=== PATIENT | male | born 1940 | race Caucasian/White ===

== ENCOUNTER 2022-02-27 22:59 | Inpatient (IN) | payer MEDICAID, MEDICARE ==
[~2022-02-27] VITALS: Ht 172.7 cm; Wt 90.0 kg
[2022-02-27 23:45] LABS: BASOPHILS # (AUTO) 0.1 X10'3 (0-0.2); BASOPHILS % (AUTO) 0.6 % (0-1); EOSINOPHILS # (AUTO) 0.1 X10'3 (0-0.9); EOSINOPHILS % (AUTO) 0.8 % (0-6); HEMATOCRIT 46.2 % (42.0-52.0); HEMOGLOBIN 15.8 g/dl (14.0-17.9); LYMPHOCYTES % (AUTO) 20.4 % (21-51); MEAN CORPUSCULAR HEMOGLOBIN 30.7 PG (27.0-31.0); MEAN CORPUSCULAR HGB CONC 34.2 g/dL (33.0-36.5); MEAN CORPUSCULAR VOLUME 89.7 FL (78-98); MEAN PLATELET VOLUME 8.7 FL (7.4-10.4); MONOCYTES % (AUTO) 9.9 % (2-12); NEUTROPHILS # (AUTO) 6.8 X10'3 (1.8-7.7); NEUTROPHILS % (AUTO) 68.3 % (42-75); PLATELET COUNT 176 X10'3 (140-440); RED BLOOD COUNT 5.16 X10'6 (4.70-6.10); RED CELL DISTRIBUTION WIDTH 13.4 % (11.5-14.5)
[2022-02-27 23:57] LABS: ALANINE AMINOTRANSFERASE 24 U/L (12-78); ALBUMIN 3.8 G/DL (3.4-5.0); ALBUMIN/GLOBULIN RATIO 1.2 (1.1-1.5); ALKALINE PHOSPHATASE 75 IU/L (46-116); ANION GAP 10 (8-16); ASPARTATE AMINO TRANSFERASE 16 U/L (10-37); BILIRUBIN,TOTAL 0.4 MG/DL (0.1-1.0); BLOOD UREA NITROGEN 25 MG/DL (7-18); BUN/CREATININE RATIO 17.1 (5.4-32.0); CALCIUM 8.6 MG/DL (8.5-10.1); CHLORIDE 104 MMOL/L (99-107); CREATININE 1.46 MG/DL (0.60-1.10); GLUCOSE 176 MG/DL (70-104); POTASSIUM 3.7 MMOL/L (3.5-5.1); SODIUM 141 MMOL/L (135-145); TOTAL CARBON DIOXIDE 27.3 MMOL/L (24-32); eGFR 46 ML/MIN
[2022-02-28] VITALS (14 sets, daily range): BP systolic 102–129; BP diastolic 47–68
[2022-02-28] MEDS ORDERED: heparin 10,000 units/1 ML INJ IV ONE ×2 (00:20→01:50)
[2022-02-28] MEDS ORDERED: heparin 10,000 units/1 ML INJ IV PRN ×3 (00:20→06:00)
[2022-02-28] MEDS ORDERED: HEPARIN SOD,PORK IN 0.45% NACL 250 ML IV SCH (00:20)
[2022-02-28] MEDS ORDERED: nitroGLYCERIN 1gm ointment UD TP ONE (00:20)
[2022-02-28] MEDS ORDERED: aspirin 81mg tab.chew PO ONE (00:20)
[2022-02-28] MEDS ORDERED: heparin 25,000 UNIT/250ml bag 250 ML IV SCH (00:40)
[2022-02-28] MEDS ORDERED: metoprolol tartrate 1mg/ml inj IV ONE (01:00)
[2022-02-28 01:41] LABS: APTT 28 SECONDS (22-32)
[2022-02-28] MEDS ORDERED: ondansetron/PF 4mg/2ml inj IV PRN (01:45)
[2022-02-28] MEDS ORDERED: PERFLUTREN PROTEIN-A MICROSPHR (Optison) 0.22 MG/ML 3ML VIAL IV PRN (01:45)
[2022-02-28] MEDS ORDERED: magnesium Cl slow-release 64mg tablet PO PRN (01:45)
[2022-02-28] MEDS ORDERED: magnesium 4gm in 100ml NS 100 ML IV PRN (01:45)
[2022-02-28] MEDS ORDERED: acetaminophen 325mg tablet PO PRN (01:45)
[2022-02-28] MEDS ORDERED: magnesium 2GM in 50ml NS 50 ML IV PRN (01:45)
[2022-02-28] MEDS ORDERED: potassium CL 10mEq/100ml bag 100 ML IV PRN (01:45)
[2022-02-28] MEDS ORDERED: POTASSIUM BICARB 20meq eff tab 20 MEQ TABLET.EFF PO PRN ×2 (01:45)
--- NOTE | 2022-02-28 01:46 | NUR ---
Second troponin 473. notified
[2022-02-28] MEDS ORDERED: heparin 25,000 UNIT/250ml bag 250 ML IV PRN ×2 (02:10→06:00)
[2022-02-28 02:43] LABS: MAGNESIUM 2.2 MG/DL (1.5-2.4); POTASSIUM 3.7 MMOL/L (3.5-5.1)
--- NOTE | 2022-02-28 02:53 | NUR ---
PAGER ID: [phone] MESSAGE: Fabien Perla in ER bed 16 Third troponin increased to 877
[2022-02-28] MEDS: morphine 2 MG/ML inj. syringe IV PRN ×2 (03:05→12:56)
[2022-02-28] MEDS ORDERED: ASPI-1264 PO (03:10)
[2022-02-28] MEDS ORDERED: SILD100T70 PO (03:10)
--- NOTE | 2022-02-28 07:20 | NUR ---
TELEPHONE REPORT TO FRANK KRUGER.
[2022-02-28] MEDS: K and/or MAG REPLACEMENT MC SCH ×2 (08:00→19:21)
[2022-02-28] MEDS ORDERED: fentaNYL/PF 50MCG/1 ML 2ML syringe ONE (08:31)
[2022-02-28] MEDS ORDERED: heparin 1,000unit/ml 10ml vial 10 ML ONE (08:31)
[2022-02-28] MEDS ORDERED: LIDOcaine 1% 30ml preserv. free vial ONE (08:31)
[2022-02-28] MEDS ORDERED: midazolam 1 mg/ML 2ml injection ONE ×2 (08:31→11:35)
[2022-02-28] MEDS ORDERED: iohexol 350MG/ML 100ml bottle IV ONE ×2 (08:32→10:57)
--- NOTE | 2022-02-28 08:57 | NUR ---
Patient in room PCU 3012. I have received report from FRANK MORATAYA and had the opportunity to ask questions and assume patient care.
--- NOTE | 2022-02-28 08:58 | NUR ---
0700 APTT 58, THERAPEUTIC, NO CHANGES, NEXT LAB ORDERED
[2022-02-28] MEDS ORDERED: aspirin 81mg, enteric-coated 1 TAB TABLET.DR PO ONE (10:30)
[2022-02-28] MEDS: atorvastatin 20mg tablet PO SCH (10:30)
[2022-02-28] MEDS ORDERED: ticagrelor 90mg tablet ONE (11:06)
[2022-02-28 11:29] LABS: HEMOGLOBIN A1C 6.5 % (4.5-6.2)
[2022-02-28 11:30] LABS: CHOL/HDL RATIO 3.9 (0.00-4.99); CHOLESTEROL 185 MG/DL (0-200); HDL CHOLESTEROL 48 MG/DL (35-60); LDL CHOLESTEROL 115 MG/DL (50-100); TRIGLYCERIDES 101 MG/DL (20-135)
[2022-02-28] MEDS ORDERED: heparin 1,000 UNITS/NS 500ml 500 ML ONE (11:35)
[2022-02-28 17:15] LABS: BASOPHILS # (AUTO) 0.1 X10'3 (0-0.2); BASOPHILS % (AUTO) 0.5 % (0-1); EOSINOPHILS # (AUTO) 0.2 X10'3 (0-0.9); EOSINOPHILS % (AUTO) 1.7 % (0-6); HEMATOCRIT 44.1 % (42.0-52.0); HEMOGLOBIN 14.7 g/dl (14.0-17.9); LYMPHOCYTES # (AUTO) 2.1 X10'3 (1.1-4.8); LYMPHOCYTES % (AUTO) 19.2 % (21-51); MEAN CORPUSCULAR HEMOGLOBIN 30.2 PG (27.0-31.0); MEAN CORPUSCULAR HGB CONC 33.3 g/dL (33.0-36.5); MEAN CORPUSCULAR VOLUME 90.5 FL (78-98); MEAN PLATELET VOLUME 8.4 FL (7.4-10.4); MONOCYTES # (AUTO) 1.4 X10'3 (0-0.9); MONOCYTES % (AUTO) 12.7 % (2-12); NEUTROPHILS # (AUTO) 7.3 X10'3 (1.8-7.7); NEUTROPHILS % (AUTO) 65.9 % (42-75); PLATELET COUNT 146 X10'3 (140-440); RED BLOOD COUNT 4.87 X10'6 (4.70-6.10); RED CELL DISTRIBUTION WIDTH 13.5 % (11.5-14.5); WHITE BLOOD COUNT 11.1 X10'3 (4.5-11.0)
--- NOTE | 2022-02-28 18:30 | NUR ---
Patient in room U 3012. I have received report from FRANK ARANDA and had the opportunity to ask questions and assume patient care. Addendum: 02/28/22 at 1850 by Mitzi Lopez RN Amended: Links added. Addendum: 02/28/22 at 1852 by Mitzi Lopez RN DISSREGARD ABOVE NOTE WRONG PATIENT
--- NOTE | 2022-02-28 18:40 | NUR ---
Problems reprioritized. Patient report given, questions answered & plan of care reviewed with FRANK WILLINGHAM.
--- NOTE | 2022-02-28 18:40 | NUR ---
Patient in room PCU 3012. I have received report from FRANK KRUGER and had the opportunity to ask questions and assume patient care. NO COMPLAINTS. SIG OTHER AT BEDSIDE. Addendum: 02/28/22 at 1857 by Mitzi Lopez RN Amended: Links added.
[2022-02-28] MEDS: ticagrelor 90mg tablet PO SCH ×2 (19:24→20:00)
[2022-03-01 01:49] VITALS: BP 132/68
--- NOTE | 2022-03-01 06:33 | NUR ---
Problems reprioritized. Patient report given, questions answered & plan of care reviewed with FRANK REYNA. Addendum: 03/01/22 at 0633 by Mitzi Lopez RN Amended: Links added.
[2022-03-01 06:44] LABS: BASOPHILS % (AUTO) 0.4 % (0-1); EOSINOPHILS # (AUTO) 0.2 X10'3 (0-0.9); EOSINOPHILS % (AUTO) 2.1 % (0-6); HEMATOCRIT 42.9 % (42.0-52.0); HEMOGLOBIN 14.8 g/dl (14.0-17.9); LYMPHOCYTES # (AUTO) 1.9 X10'3 (1.1-4.8); LYMPHOCYTES % (AUTO) 18.9 % (21-51); MEAN CORPUSCULAR HGB CONC 34.5 g/dL (33.0-36.5); MEAN PLATELET VOLUME 8.8 FL (7.4-10.4); MONOCYTES # (AUTO) 1.5 X10'3 (0-0.9); MONOCYTES % (AUTO) 15.4 % (2-12); NEUTROPHILS # (AUTO) 6.4 X10'3 (1.8-7.7); NEUTROPHILS % (AUTO) 63.2 % (42-75); PLATELET COUNT 153 X10'3 (140-440); RED BLOOD COUNT 4.77 X10'6 (4.70-6.10); RED CELL DISTRIBUTION WIDTH 13.4 % (11.5-14.5); WHITE BLOOD COUNT 10.1 X10'3 (4.5-11.0)
[2022-03-01 06:45] LABS: ALBUMIN 3.3 G/DL (3.4-5.0); ANION GAP 7 (8-16); BLOOD UREA NITROGEN 19 MG/DL (7-18); BUN/CREATININE RATIO 15.6 (5.4-32.0); CALCIUM 8.6 MG/DL (8.5-10.1); CHLORIDE 109 MMOL/L (99-107); CREATININE 1.22 MG/DL (0.60-1.10); GLUCOSE 118 MG/DL (70-104); POTASSIUM 3.8 MMOL/L (3.5-5.1); SODIUM 142 MMOL/L (135-145); TOTAL CARBON DIOXIDE 26.2 MMOL/L (24-32); eGFR 57 ML/MIN
[2022-03-01] MEDS: K and/or MAG REPLACEMENT MC SCH (08:00)
[2022-03-01] MEDS ORDERED: isosorbide mononitrate 30mg tab.SR.24H PO SCH (08:00)
[2022-03-01] MEDS ORDERED: ROSUVASTATIN CALCIUM 5 MG TABLET PO SCH (08:00)
[2022-03-01] MEDS ORDERED: aspirin 81mg, enteric-coated 1 TAB TABLET.DR PO SCH (08:00)
[2022-03-01] MEDS: ticagrelor 90mg tablet PO SCH (09:06)
[2022-03-01] MEDS: atorvastatin 20mg tablet PO SCH (09:06)
[2022-03-01] MEDS ORDERED: ISOS30TA84 PO (11:01)
[2022-03-01] MEDS ORDERED: ASPI-1071 PO (11:01)
[2022-03-01] MEDS ORDERED: TICA90TA PO (11:01)
[2022-03-01] MEDS ORDERED: ATOR20TA66 PO (11:01)
[2022-03-01] MEDS ORDERED: POLY17PO10 PO (11:13)
[2022-03-01 11:31] VITALS: BP 104/68
[2022-03-01] MEDS ORDERED: LORazepam 0.5 MG tablet PO ONE (12:25)
--- NOTE | 2022-03-01 14:00 | NUR ---
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 Pt significant other picked up prescriptions including the brilinta prescription and presented to this RN. Emphasis in discharge education focused on compliance with medication, MD appointments and positive lifestyle changes
--- NOTE | 2022-03-17 13:06 | NUR ---
Case Management DC follow up: Spoke with Patient via telephone.S/P :Patient reports:. Denies: Acute/continuous CP,Emergent SOB, resp distress, orthopnea, dyspnea, N/V, vertigo, syncope episodes, orthostatic hypotension, PIERRE, blurry vision, s/s of stroke/BE-FAST, dysphagia, dysuria, hematuria, retention, Abdominal pain/distention, hematochezia, melena, unexplained bruising, bleeding,fever, chills.Verbalizes understanding of s/s that warrant a 9-11/ER visit for further evaluation.Verbalizes understanding of new Rx:, why prescribed; continues/resumes current Rx as ordered.Denies s/s of infection at heart cath puncture site.Denies: redness, warmth to touch, drainage,and/or swelling at cath site. Verbalizes he has some mild vague discomfort at left groin, none at right groin.Verbalized he has seen Dr. Jade; however, has not scheduled a follow up appointment with Dr. Gill at [facility] in clinic.Verbalizes he will call and schedule appointment with Dr. Gill today; declined offer of assistance with call.Verbalized everything was fine with his stay at hospital. needs met, questions/concerns addressed at DC.No further questions/concerns regarding recent hospital stay and/or DC status at this time.
== END 2022-03-01 13:40 | disposition home or self-care (01) | DRG 246 ==
LOC: ER 23:00 → ED HOLD 02-28 01:48 → PCU 3S 02-28 08:00
PROVIDERS: ADMIT Internal Medicine; ATTEND Family Medicine
PROC: 4A023N7 Measurement of Cardiac Sampling and Pressure, Left Heart, Percutaneous Approach (ICD-10-PCS; principal; 2022-02-28)
PROC: 027034Z Dilation of Coronary Artery, One Artery with Drug-eluting Intraluminal Device, Percutaneous Approach (ICD-10-PCS; 2022-02-28)
PROC: B2111ZZ Fluoroscopy of Multiple Coronary Arteries using Low Osmolar Contrast (ICD-10-PCS; 2022-02-28)
PROC: B3101ZZ Fluoroscopy of Thoracic Aorta using Low Osmolar Contrast (ICD-10-PCS; 2022-02-28)
PROC: B3121ZZ Fluoroscopy of Left Subclavian Artery using Low Osmolar Contrast (ICD-10-PCS; 2022-02-28)
PROC: B31N1ZZ Fluoroscopy of Other Upper Arteries using Low Osmolar Contrast (ICD-10-PCS; 2022-02-28)
PROC: B41F1ZZ Fluoroscopy of Right Lower Extremity Arteries using Low Osmolar Contrast (ICD-10-PCS; 2022-02-28)
DX: I21.4 Non-ST elevation (NSTEMI) myocardial infarction (principal); I50.33 Acute on chronic diastolic (congestive) heart failure; I25.810 Atherosclerosis of coronary artery bypass graft(s) without angina pectoris; I42.9 Cardiomyopathy, unspecified; I10 Essential (primary) hypertension; E78.5 Hyperlipidemia, unspecified; I25.10 Atherosclerotic heart disease of native coronary artery without angina pectoris; K21.9 Gastro-esophageal reflux disease without esophagitis; N28.9 Disorder of kidney and ureter, unspecified; Z79.82 Long term (current) use of aspirin; Z79.899 Other long term (current) drug therapy; Z87.891 Personal history of nicotine dependence; Z91.14 Patient's other noncompliance with medication regimen; Z98.61 Coronary angioplasty status; I11.0 Hypertensive heart disease with heart failure
CPT/HCPCS: 93306; 93459; 93567; 99285; C9600; 36415; 71045; 80048; 80053; 80061; 83036; 83735; 83880; 84132; 84443; 84484; 85025; 85610; 85730; 87081; 93005; 97116; 97161; 99152; 99153; A4620; A6258; C1725; C1751; C1760; C1769; C1874; C1894; G0378; J1644; J2250; J2270; J3010; J3490; Q9967